=== PATIENT | male | born 1970 | race Caucasian/White ===

== ENCOUNTER 2017-01-18 11:39 | Inpatient (IN) | payer BC ==
[~2017-01-18] VITALS: Ht 177.8 cm; Wt 84.7 kg
--- NOTE | ~2017-01-18 | ECH ---
Transthoracic Echocardiography Report (TTE) Demographics Patient Name KANU SANTANA Date of Study 01/19/2017 Patient Number [id number] Visit Number [id number] Date of 1970 Room Number 401 Accession Number [id number] Gender Male Age 46 year(s) Referring Richard Christie Networking Administrator Tessa Owens [facility] Physician Physician Sushil Perez MD Student Dean Physician [place] Supervising Ordering Physician Richard Christie MD/MLP Nurse Stress Medical Office Worker Conclusions Contractility Score Summary Global hypokinesis with akinesis of the entire apex. Summary Technically adequate exam. The estimated left ventricular ejection fraction is 20-25%. Segmental wall motion abnormalities. The left ventricle is severly dilated . Moderate concentric left ventricular hypertrophy. The left atrium is moderately dilated by LA volume index measurement. Moderate mitral regurgitation by color Doppler. The mitral regurgitation jet is posteriorly directed . Mild tricuspid regurgitation by color Doppler. Estimated pulmonary pressures within normal range. Recommendation The patient will be given the results of this study by the physician who ordered the exam. Procedure Type of Study TTE procedure:Echo Complete SF. Procedure Date Date: 01/19/2017 Start: 10:38 AM Technical Quality: Adequate visualization Indications:Non-ischemic cardiomyopathy, Congestive heart failure and pacemaker/defibrillator. Appropriate Use Criteria: 9 Height: 70 inches Weight: 186 pounds BSA: 2.02 m Rhythm: Paced HR: 110 bpm BP: 98/65 mmHg M-Mode/2D Measurements LV Diastolic Dimension: 6.46 cm LV Systolic Dimension: 5.05 cm LV Septum Diastolic: 1.42 cm LV PW Diastolic: 1.41 cm AO Root Dimension: 2.7 cm Cardiac Output: 7.13 l/min LA Dimension: 4.98 cm Cardiac Index: 3.53 l/min*m LA volume index: 45 ml/m LVOT: 2.16 cm RV Base: 4 cm LVOT VTI: 17.69 cm RV Mid: 2.6 cm LV Stroke volume: 64.79 ml RV Length: 7 cm LV Stroke volume index: 32.07 ml/m Doppler Measurements AV Peak Velocity: 1.5 m/s MV Peak E-Wave: 1.43 m/s AV Peak Gradient: 9 mmHg AV Mean Gradient: 6.11 mmHg MV P1/2t: 34.6 msec LVOT Peak Velocity: 1.07 m/s MV Mean Gradient: 3.08 mmHg AV Area (Continuity):2.77 cm MV Deceleration Time: 128.5 msec TR Velocity:2.63 m/s MV Area (PHT): 6.36 cm TR Gradient:27.62 mmHg Estimated RAP:5 mmHg Estimated PASP: 32.62 mmHg Estimated RVSP: 33 mmHg RA Area: 16.15 cm Findings Left Ventricle The left ventricle is severly dilated . Moderate concentric left ventricular hypertrophy. Diastolic function indeterminate due to patient's arrhythmia. Right Ventricle Normal right ventricle structure and function. Device lead noted in the right ventricle. Left Atrium The left atrium is moderately dilated by LA volume index measurement. Right Atrium Normal right atrial size. Device lead seen in the right atrium. Mitral Valve Mild thickening of the mitral valve leaflets. Moderate mitral regurgitation by color Doppler. The mitral regurgitation jet is posteriorly directed . Aortic Valve Normal aortic valve structure and function. Tricuspid Valve Normal tricuspid valve structure and function. Mild tricuspid regurgitation by color Doppler. Estimated pulmonary pressures within normal range. Pulmonic Valve The pulmonic valve is not well visualized. Pericardial Effusion No evidence of pericardial effusion. Miscellaneous Visualized portions of the aortic root and ascending aorta appear normal in size. Pleural Effusion No evidence of pleural effusion. Contractility Score LV regional wall motion:(0-Non visualized 1-Normal 2-Hypokinesis 3-Akinesis 4-Dyskinesis 5-Aneurysm) Signature
--- NOTE | 2017-01-20 03:45 | ER ---
ADMIT: 01/18/2017 RM/LOC: 401 [facility] MR#: [id number] [address] [address] [place] [address] Emergency Room Report SEX: M AGE: 46 : 1970 DATE: 01/18/2017 TIME: 1139 hours. Please refer to my T-sheet for complete H and P. HISTORY OF PRESENT ILLNESS: Briefly, the patient is a 46-year-old, comes in with shortness of breath. It has been going on for 2 weeks. He has a known history of smoking a pack a day, COPD, congestive heart failure, cardiac disease, he has had a pacemaker. He has been out of his medications for several days, and more short of breath. His legs have not been swollen. No severe chest pain, exertion makes a difference though, and he says it makes it worse. PHYSICAL EXAMINATION: VITAL SIGNS: Blood pressure 141/92, pulse 110, respirations 20, temp 97, saturating at 96%. GENERAL: Mild distress. HEENT: Grossly normal. LUNGS: Decreased breath sounds throughout with expiratory wheezes and rhonchi noted. HEART: Tachycardic. Regular. No murmur. ABDOMEN: Soft. EXTREMITIES: No cyanosis, clubbing, or edema. SKIN: No rash. EMERGENCY DEPARTMENT COURSE: CBC; his white count was 17.6, platelets 148, otherwise was normal. Chemistries normal except glucose 115. His BNP was 978. Troponin was negative. Chest x-ray revealed congestive heart failure and cardiomegaly. No obvious infiltrate read by the radiologist. Also, his EKG was paced, rate 111. We went ahead and did the whole sepsis routine, I added this in, and we will start antibiotics here in addition, I gave him Decadron 10 IV, ADMIT: 01/18/2017 RM/LOC: 401 [facility] MR#: [id number] [address] [facility] [address] [place] [address] Emergency Room Report SEX: M AGE: 46 : 1970 albuterol neb after a DuoNeb originally, Zofran, some Ativan 0.5. We will admit to the hospital. ASSESSMENT: 1. Chronic obstructive pulmonary disease with acute exacerbation. 2. Acute bronchitis. 3. Some congestive heart failure with med noncompliance. 4. Nicotine abuse. PLAN: Admit to the hospital under Dr. Ramos. Russell Luo MD/ trinity JOB #: [id number] CC: Iram Ramos MD, Attending Physician Iram Ramos MD, Family Physician Iram Ramos MD
[2017-01-20] MEDS ORDERED: BUMEX DPS1 MG PO (11:25)
[2017-01-20] MEDS ORDERED: TOPROL XL50 MG PO (11:25)
[2017-01-20] MEDS ORDERED: ZESTRIL DPS2.5 MG PO (11:25)
[2017-01-20] MEDS ORDERED: AMOXICILLIN875 MG PO (11:26)
[2017-01-20] MEDS ORDERED: PROTONIX40 MG PO (11:27)
[2017-01-20] MEDS ORDERED: COMBIVENT RESPIM4 GM IH (11:27)
[2017-01-20] MEDS ORDERED: DELTASONE DPS20 MG PO (11:27)
[2017-01-20] MEDS ORDERED: MUCINEX600 MG PO (11:27)
[2017-01-20] MEDS ORDERED: NICOTINE PATCH1 EAC1 TD (11:28)
--- NOTE | 2017-01-21 10:41 | HP ---
ADMIT: 01/18/2017 RM/LOC: 401 [facility] MR#: [id number] [address] [address] [place] [address] History and Physical SEX: M AGE: 46 : 1970 DATE OF SERVICE: 01/18/2017 HISTORY OF PRESENT ILLNESS: This is a 46-year-old male with a history of nonischemic cardiomyopathy, chronic systolic heart failure with pacemaker and ICD implantation, COPD, tobacco use, learning disorder who presents to the emergency room with worsening shortness of breath and cough over the past week. The patient reports that he ran out of his cardiac medicines 1 week ago. He has noticed increased swelling in his lower extremities since then. He also notes that he does have some shortness of breath when lying flat. He has been going out in the cold more often which exacerbates his breathing as well. Notes that he has been around sick contacts at work, and he is coughing up more sputum than usual. He also reports nasal congestion and drainage. Denies fevers, chills, chest pain, lightheadedness, dizziness. Denies any chest pain with exertion. He does report after swallowing, he has the increased sensation of burping and this causes him some discomfort. He has continued to smoke and is smoking half a pack a day. He has been trying to quit, but has been unsuccessful, though he has cut back from one pack per day. He denies any nausea, vomiting, diarrhea, constipation. He was prescribed inhalers several years ago, but has not had any inhalers recently. The patient reports that he is compliant with his medications, when he has medications available. PAST MEDICAL HISTORY: 1. Nonischemic cardiomyopathy. 2. Chronic heart failure with reduced ejection fraction status post pacemaker/ICD implant. 3. COPD. 4. Tobacco use and dependence. 5. Gastroesophageal reflux disease. 6. Learning disorder. MEDICATIONS: 1. lisinopril 2.5 mg daily. 2. Metoprolol succinate 50 mg daily. 3. Bumetanide 1 mg daily. 4. Ibuprofen 400 mg daily p.r.n. ALLERGIES: CODEINE. FAMILY HISTORY: Mother had ALS. SOCIAL HISTORY: Denies alcohol or drug use. Has been smoking half a pack per day, though has a history of one pack per day and has smoked for greater than 30 years. The patient is attempting to quit. REVIEW OF SYSTEMS: Review of systems was obtained and is negative except for what is listed in the HPI above. PHYSICAL EXAMINATION: VITAL SIGNS: Include; temperature of 96.5 degrees Fahrenheit, pulse 103, respiratory rate 18, blood pressure 106/67, and oxygen ADMIT: 01/18/2017 RM/LOC: [address] [place] [address] MR#: [id number] [address] [place] [id number] [place] [address] History and Physical SEX: M AGE: 46 : 1970 saturation 95%. GENERAL: Alert and oriented, in no acute distress. HEENT: Mucous membranes moist. Extraocular movements are intact. RESPIRATORY: Diffuse wheezing in all lung sinclair bilaterally. Unable to appreciate any crackles. CARDIOVASCULAR: Regular rate and rhythm, no murmurs noted. ABDOMEN: Nontender, nondistended, bowel sounds present. EXTREMITIES: trace edema to knees bilaterally. SKIN: No rashes or lesions are noted on exposed skin. NEURO: The patient is moving all 4 extremities. LABORATORY DATA: Labs include white blood cell count 17.6 without left shift, hemoglobin 15.8, platelets 148. Creatinine 1.3, otherwise electrolytes on BMP are unremarkable. Lactic acid 1.3, procalcitonin less than 0.05. INR less than 1. Troponin 0.026, proBNP 978. IMAGING: Chest x-ray: No focal consolidations noted. Last echocardiogram was done in 2012, and showed dilated and moderately hypertrophied left ventricle. Ejection fraction was 20% to 25% with global hypokinesis and septal akinesis, moderate mitral regurgitation, RVSP 43. Per chart review, cardiac catheterization in 2008 was normal. ASSESSMENT AND PLAN: A 46-year-old male with history of chronic systolic heart failure, nonischemic cardiomyopathy, pacemaker and ICD implantation, chronic obstructive pulmonary disease, admitted with likely chronic obstructive pulmonary disease exacerbation in addition to mild acute heart failure exacerbation. 1. Chronic obstructive pulmonary disease exacerbation. Continue DuoNebs, supplemental oxygen. Dexamethasone was given in the ER, we will continue with oral prednisone. Ceftriaxone and azithromycin were given in the ER to cover for possible pneumonia; however, has no consolidation noted on x- ray and procalcitonin negative, suspect low likelihood of pneumonia, so we will stop ceftriaxone and azithromycin, but start Augmentin to cover for COPD exacerbation. He will likely need to discharge on inhalers. Suspect exacerbation may be due to combination of possible viral URI, continued tobacco use. Low likelihood of influenza. 2. Nonischemic cardiomyopathy, status post pacemaker and ICD implantation. 3. Acute on chronic congestive heart failure exacerbation. a. Last ejection fraction was 20% to 25%, but was in 2012, we will repeat TTE in the morning. The patient ran out of medications one week ago, so suspect this is the cause of his CHF exacerbation. We will start the patient on Lasix tonight and monitor. We will likely need to redo Lasix tomorrow morning. 4. Gastroesophageal reflux disease. ADMIT: 01/18/2017 RM/LOC: [address] [place] [address] MR#: [id number] [address] [place] [id number] [place] [address] History and Physical SEX: M AGE: 46 : 1970 a. We will start Protonix and monitor. 5. Tobacco dependence. a. We will start nicotine patch, and the patient is interested in quitting. We will have further discussions with this throughout this hospitalization. 6. Leukocytosis. a. Azithromycin and ceftriaxone given in the ER, but low suspicion of pneumonia due to negative procalcitonin, no consolidation noted on chest x-ray, lack of fevers or other signs of pneumonia. No other signs of systemic infection, so leukocytosis may be stress response. We will continue to monitor, though we will stop azithromycin and ceftriaxone and switch to Augmentin as noted above. 7. Lovenox for DVT prophylaxis. 8. Full code. 9. Cardiac diet. Sonya Hobson MD / Iram Ramos MD / trinity JOB #: [id number] CC: Iram Ramos, Attending Physician Iram Ramos, Family Physician
--- NOTE | 2017-02-01 11:48 | DS ---
ADMIT: 01/18/2017 RM/LOC: 401 [facility] MR#: [id number] [address] [address] [place] [address] Discharge Summary SEX: M AGE: 46 : 1970 ADMISSION DATE: 01/18/2017 DISCHARGE DATE: 01/19/2017 DISCHARGE DIAGNOSES: 1. Chronic obstructive pulmonary disease with acute exacerbation. 2. Increased dyspnea. 3. Nonischemic cardiomyopathy with CHF (chronic heart failure). 4. Acute on chronic systolic CHF (chronic heart failure). 5. Gastroesophageal reflux disease. 6. Medical noncompliance. 7. Tobacco dependence. 8. Elevated white blood cell count. 9. History of a learning disorder. HOSPITAL COURSE: The patient was admitted. He was given IV Lasix. He was given DuoNeb treatments, steroids, and antibiotics. The next morning, he was feeling better. He was off all oxygen. The plan was for patient to be discharged home. He did have a pacemaker interrogation prior to his discharge. The patient was doing quite well. I did stress the importance of medical compliance as well as the importance of him quitting smoking and he voiced understanding. The plan was for patient to be discharged home. His discharge medications were to be: 1. Augmentin 875 p.o. b.i.d. x7 days. 2. Prednisone 40 mg p.o. daily x5. 3. Mucinex 600 mg p.o. b.i.d. x7 days. 4. Protonix 40 mg p.o. daily. 5. Zestril 2.5 p.o. daily. 6. Habitrol patches 14 mg, change daily. 7. Combivent Respimat one puff q.i.d. Follow up with PCP in 7-10 days. Iram Ramos MD/ dolores JOB #: [id number] CC: Iram Ramos MD, Attending Physician Iram Ramos MD, Family Physician
== END 2017-01-19 14:12 | disposition home or self-care (01) | DRG 190 ==
LOC: ER 11:39 → 4PCU 13:48
PROVIDERS: ADMIT Internal Medicine
DX: J44.1 Chronic obstructive pulmonary disease with (acute) exacerbation (principal); I50.23 Acute on chronic systolic (congestive) heart failure; I42.9 Cardiomyopathy, unspecified; F17.210 Nicotine dependence, cigarettes, uncomplicated; I25.10 Atherosclerotic heart disease of native coronary artery without angina pectoris; D72.829 Elevated white blood cell count, unspecified; F81.9 Developmental disorder of scholastic skills, unspecified; K21.9 Gastro-esophageal reflux disease without esophagitis; Z95.810 Presence of automatic (implantable) cardiac defibrillator; Z91.128 Patient's intentional underdosing of medication regimen for other reason